=== PATIENT | male | born 1980 | race American Indian/Alaskan Native ===

== ENCOUNTER 2016-05-21 06:30 | Emergency (ER) | payer BC, MEDICAID ==
[2016-05-21 06:43] VITALS: TEMP 98.3
--- NOTE | 2016-05-21 07:01 | ED PDOC ---
HPI: Psych/Substance Abuse Time Seen by Provider: 05/21/16 06:53 Chief Complaint (Nursing): Palpitations History Per: Patient (Admits to doing PCP earlier last night. Now c/o palpitations. Denies chest telma n or SOB) Onset/Duration Of Symptoms: Hrs (4) Current Symptoms Are (Timing): Intermittent Episodes Suicide/Self Injury Attempted (Context): None Modifying Factor(s): Other Severity: Mild Pain Scale Rating Of: 0 Associated Symptoms: Anxiety Past Medical History Vital Signs: Last Vital Signs Temp 98.3 F 05/21/16 06:41 Pulse 118 H 05/21/16 06:41 Resp 18 05/21/16 06:41 BP 144/79 05/21/16 06:41 Pulse Ox 95 05/21/16 06:41 - Medical History PMH: No Chronic Diseases - Family History Family History: States: Unknown Family Hx - Immunization History Hx Tetanus Toxoid Vaccination: No (not sure of last tetanus) Hx Influenza Vaccination: No Hx Pneumococcal Vaccination: No - Home Medications Home Medications: Ambulatory Orders Medication Instructions Recorded Oxycodone HCl/Acetaminophen 1 tab PO Q8H #10 tab 09/20/14 [Percocet 325 mg-5 mg] Cephalexin [Keflex] 500 mg PO TID #21 capsule 11/21/15 Ibuprofen [Motrin] 600 mg PO Q6 PRN #15 tab 11/21/15 Oseltamivir Phosphate [Tamiflu] 75 mg PO BID #10 capsule 03/20/16 - Allergies Allergies/Adverse Reactions: Allergies Allergy/AdvReac Type Severity Reaction Status Date / Time No Known Allergies Allergy Verified 12/04/15 11:34 Review of Systems ROS Statement: Except As Marked, All Systems Reviewed And Found Negative Cardiovascular: Positive for: Palpitations. Negative for: Chest Pain Physical Exam - Reviewed Nursing Documentation Reviewed: Yes Vital Signs Reviewed: Yes - Physical Exam Appears: Positive for: Non-toxic, No Acute Distress Head Exam: Positive for: ATRAUMATIC, NORMAL INSPECTION, NORMOCEPHALIC Skin: Positive for: Normal Color, Warm, DRY Eye Exam: Positive for: EOMI, Normal appearance, PERRL ENT: Positive for: Normal ENT Inspection Neck: Positive for: Normal, Painless ROM Cardiovascular/Chest: Positive for: Regular Rate, Rhythm Respiratory: Positive for: CNT, Normal Breath Sounds Gastrointestinal/Abdominal: Positive for: Normal Exam, Bowel Sounds, Soft Back: Positive for: Normal Inspection Extremity: Positive for: Normal ROM Neurologic/Psych: Positive for: Alert, Oriented - Laboratory Results Result Diagrams: 05/21/16 06:54 - ECG O2 Sat by Pulse Oximetry: 95 Disposition - Clinical Impression Clinical Impression: Drug ingestion - Patient ED Disposition Is Patient to be Admitted: No - Disposition Disposition: Routine/Home Disposition Time: 10:17 Condition: FAIR Instructions: Polysubstance Abuse (ED)
[2016-05-21 07:33] LABS: ALB/GLOB RATIO 1.5 (1.0-2.1); ALCOHOL SERUM < 10 mg/dl (0-10); ALKALINE PHOSPHATASE 69 U/L (38-126); ALT/SGPT 34 U/L (21-72); AST/SGOT 63 U/L (17-59); BILIRUBIN,TOTAL 0.5 mg/dl (0.2-1.3); BLOOD UREA NITROGEN 15 mg/dl (9-20); CARBON DIOXIDE 23 mmol/L (22-30); CHLORIDE 105 mmol/L (98-107); GFR AFRICAN-AMERICAN > 60; GLUCOSE,RANDOM 105 mg/dL (75-110); POTASSIUM 3.8 MMOL/L (3.6-5.0); SODIUM 143 mmol/l (132-148); TOTAL PROTEIN 7.5 G/DL (6.3-8.2)
--- NOTE | 2016-05-21 08:57 | CARD ---
APPROVED REPORT EKG Measurement Heart [id number] <Conclusion> Sinus tachycardia Otherwise normal ECG
[2016-05-21 09:36] VITALS: RESP 18
[2016-05-21 10:29] VITALS: BP 123/68; PULSE 61; O2SAT 99
== END 2016-05-21 10:29 | disposition home or self-care (01) ==
LOC: H.ER 06:30
DX: T50.901A Poisoning by unspecified drugs, medicaments and biological substances, accidental (unintentional), initial encounter (principal)
CPT/HCPCS: 80053; 84484; 93005; 99283; G0480

== ENCOUNTER 2016-10-05 22:43 | Emergency (ER) | payer BC, MEDICAID ==
[2016-10-05 22:56] VITALS: BP 137/98; PULSE 66; RESP 16; TEMP 97.9; O2SAT 98
--- NOTE | 2016-10-05 23:05 | ED PDOC ---
HPI: General Adult Time Seen by Provider: 10/05/16 23:02 Chief Complaint (Nursing): Medical Clearance Chief Complaint (Provider): Brought in by EMS and HPD for evaluation History Per: Patient History/Exam Limitations: no limitations Onset/Duration Of Symptoms: Days Have you had recent travel within the past 21 days to any of the following countries: [place], [place], [place] or [place]?: No Additional Complaint(s): PT eating sandwich on arrival. Denies complaint. Past Medical History Reviewed: Historical Data, Nursing Documentation, Vital Signs Vital Signs: Last Vital Signs Temp 97.9 F 10/05/16 22:54 Pulse 66 10/05/16 22:54 Resp 16 10/05/16 22:54 BP 137/98 H 10/05/16 22:54 Pulse Ox 98 10/05/16 22:54 - Medical History PMH: No Chronic Diseases - Surgical History Surgical History: No Surg Hx - Family History Family History: States: Unknown Family Hx - Living Arrangements Living Arrangements: With Family - Social History Current smoker - smoking cessation education provided: No - Immunization History Hx Tetanus Toxoid Vaccination: No (not sure of last tetanus) Hx Influenza Vaccination: No Hx Pneumococcal Vaccination: No - Home Medications Home Medications: Ambulatory Orders Medication Instructions Recorded Oxycodone HCl/Acetaminophen 1 tab PO Q8H #10 tab 09/20/14 [Percocet 325 mg-5 mg] Cephalexin [Keflex] 500 mg PO TID #21 capsule 11/21/15 Ibuprofen [Motrin] 600 mg PO Q6 PRN #15 tab 11/21/15 Oseltamivir Phosphate [Tamiflu] 75 mg PO BID #10 capsule 03/20/16 - Allergies Allergies/Adverse Reactions: Allergies Allergy/AdvReac Type Severity Reaction Status Date / Time No Known Allergies Allergy Verified 10/05/16 22:53 Review of Systems ROS Statement: Except As Marked, All Systems Reviewed And Found Negative Constitutional: Negative for: Fever, Chills Cardiovascular: Negative for: Chest Pain Respiratory: Negative for: Shortness of Breath Gastrointestinal: Negative for: Abdominal Pain Psych: Negative for: Suicidal ideation Physical Exam - Reviewed Nursing Documentation Reviewed: Yes Vital Signs Reviewed: Yes - Physical Exam Appears: Positive for: Well, Non-toxic, No Acute Distress Head Exam: Positive for: ATRAUMATIC, NORMAL INSPECTION, NORMOCEPHALIC Skin: Positive for: Normal Color, Warm, DRY Eye Exam: Positive for: Normal appearance ENT: Positive for: Normal ENT Inspection Neck: Positive for: Normal, Painless ROM Cardiovascular/Chest: Positive for: Regular Rate, Rhythm Respiratory: Positive for: CNT, Normal Breath Sounds Gastrointestinal/Abdominal: Positive for: Normal Exam, Bowel Sounds, Soft Back: Positive for: Normal Inspection Extremity: Positive for: Normal ROM Neurologic/Psych: Positive for: Alert, Oriented - ECG O2 Sat by Pulse Oximetry: 98 Medical Decision Making Medical Decision Making: crisis evaluation completed. Disposition - Clinical Impression Clinical Impression: Adjustment disorder - Patient ED Disposition Is Patient to be Admitted: No - Disposition Disposition Time: 23:02 Condition: STABLE Additional Instructions: Pt is medically and psychiatrically stable for incarceration. Instructions: Stress (ED)
== END 2016-10-05 23:34 | disposition home or self-care (01) ==
LOC: H.ER 22:43
DX: F43.20 Adjustment disorder, unspecified (principal)

== ENCOUNTER 2016-10-06 02:17 | Emergency (ER) | payer SELFPAY ==
[2016-10-06 02:21] VITALS: BP 134/76; PULSE 75; RESP 16; TEMP 97.9; O2SAT 100
--- NOTE | 2016-10-06 02:27 | ED PDOC ---
HPI: Hypertension/Hypotension Time Seen by Provider: 10/06/16 02:24 Chief Complaint (Nursing): High Blood Pressure Chief Complaint (Provider): clearance History Per: Patient, Other (Police) Additional Complaint(s): Patient was seen earlier today in emergency department for medical and psychiatric clearance prior to incarceration. He presents for second time this evening with police stating that he was concerned about his glucose levels and his high blood pressure. Police state that they brought patient to [facility] and he started to become anxious and concerned about high blood pressure and possible diabetes. Patient was combative toward officers so they brought him back to emergency department. Upon arrival patient verbalizes no complaints. Past Medical History Reviewed: Historical Data, Nursing Documentation, Vital Signs Vital Signs: Last Vital Signs Temp 97.9 F 10/06/16 02:21 Pulse 75 10/06/16 02:21 Resp 16 10/06/16 02:21 BP 134/76 10/06/16 02:21 Pulse Ox 100 10/06/16 02:21 - Medical History PMH: No Chronic Diseases - Family History Family History: States: No Known Family Hx - Immunization History Hx Tetanus Toxoid Vaccination: No (not sure of last tetanus) Hx Influenza Vaccination: No Hx Pneumococcal Vaccination: No - Home Medications Home Medications: Ambulatory Orders Medication Instructions Recorded Oxycodone HCl/Acetaminophen 1 tab PO Q8H #10 tab 09/20/14 [Percocet 325 mg-5 mg] Cephalexin [Keflex] 500 mg PO TID #21 capsule 11/21/15 Ibuprofen [Motrin] 600 mg PO Q6 PRN #15 tab 11/21/15 Oseltamivir Phosphate [Tamiflu] 75 mg PO BID #10 capsule 03/20/16 - Allergies Allergies/Adverse Reactions: Allergies Allergy/AdvReac Type Severity Reaction Status Date / Time No Known Allergies Allergy Verified 10/05/16 22:53 Review of Systems ROS Statement: Except As Marked, All Systems Reviewed And Found Negative Constitutional: Positive for: Other (medical clearance prior to incarceration) Physical Exam - Reviewed Vital Signs Reviewed: Yes - Physical Exam Appears: Positive for: Well, Non-toxic, No Acute Distress Skin: Negative for: Rash Eye Exam: Positive for: Normal appearance Cardiovascular/Chest: Positive for: Regular Rate, Rhythm Respiratory: Positive for: Normal Breath Sounds Neurologic/Psych: Positive for: Alert, Oriented - ECG O2 Sat by Pulse Oximetry: 100 Pulse Ox Interpretation: Normal Medical Decision Making Medical Decision Makin36 year old male here for clearance prior to incarcation. Patient is under arrest, Police officers at bedside. Previous ED record reviewed from earlier today. Patient was seen and cleared by crisis. BP: 134/76 Fingerstick: 83 Patient is stable for discharge into police custody. Disposition - Clinical Impression Clinical Impression: Medical clearance for incarceration - Patient ED Disposition Is Patient to be Admitted: No - Disposition Referrals: [facility] [Outside] Disposition: Discharged/Transfer to Law Enforcement Disposition Time: 02:25 Condition: FAIR Additional Instructions: PATIENT IS MEDICALLY AND PSYCHIATRICALLY STABLE FOR INCARCERATION. Instructions: Normal Exam (ED) Forms: [employer] (Mongolian)
== END 2016-10-06 02:45 | disposition home or self-care (01) ==
LOC: H.ER 02:17
DX: Z02.89 Encounter for other administrative examinations (principal); I10 Essential (primary) hypertension

== ENCOUNTER 2017-10-22 10:21 | Emergency (ER) | payer OTHER, MEDICAID ==
[2017-10-22] MEDS ORDERED: Silver Sulfadiazine 1% CREAM (50 gm) TOP STA (11:26)
[2017-10-22] MEDS ORDERED: Tdap Vaccine 0.5 ml Vial (10-64 yrs) IM ONE ×2 (11:26→11:48)
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
[2017-10-22] MEDS ORDERED: Silver Sulfadiazine 1% CREAM (50 gm) ONE (11:48)
[2017-10-22 12:32] VITALS: BP 120/62; PULSE 68; RESP 16; TEMP 98; O2SAT 99
== END 2017-10-22 12:32 | disposition home or self-care (01) ==
LOC: H.ER 10:21
DX: T25.221A Burn of second degree of right foot, initial encounter (principal); X11.8XXA Contact with other hot tap-water, initial encounter; Z23 Encounter for immunization

== ENCOUNTER 2017-11-27 01:46 | Emergency (ER) | payer MEDICAID, OTHER ==
[2017-11-27 02:58] VITALS: BP 133/76; PULSE 75; RESP 16; TEMP 97.6; O2SAT 98
--- NOTE | 2017-11-27 05:01 | ED PDOC ---
HPI: Psych/Substance Abuse Time Seen by Provider: 11/27/17 01:58 Chief Complaint (Nursing): Medical Clearance History Per: Patient History/Exam Limitations: no limitations Additional Complaint(s): Patient presenting with medical and psychiatric clearance. Patient has no complaints at this time. Denies suicidal or homicidal ideation. Past Medical History Reviewed: Historical Data, Nursing Documentation, Vital Signs Vital Signs: Last Vital Signs Temp 97.6 F 11/27/17 02:57 Pulse 75 11/27/17 02:57 Resp 16 11/27/17 02:57 BP 133/76 11/27/17 02:57 Pulse Ox 98 11/27/17 02:57 - Medical History PMH: Depression Denies: Diabetes, Hepatitis, HIV, HTN, Seizures, Sexually Transmitted Disease - Family History Family History: States: Unknown Family Hx - Immunization History Hx Tetanus Toxoid Vaccination: No (not sure of last tetanus) Hx Influenza Vaccination: No Hx Pneumococcal Vaccination: No - Home Medications Home Medications: Ambulatory Orders Medication Instructions Recorded Oxycodone HCl/Acetaminophen 1 tab PO Q8H #10 tab 09/20/14 [Percocet 325 mg-5 mg] Cephalexin [Keflex] 500 mg PO TID #21 capsule 11/21/15 Ibuprofen [Motrin] 600 mg PO Q6 PRN #15 tab 11/21/15 Oseltamivir Phosphate [Tamiflu] 75 mg PO BID #10 capsule 03/20/16 Cephalexin [Keflex] 500 mg PO BID #14 capsule 10/22/17 Silver Sulfadiazine 1% 20 gm 1 ea TOP BID #2 tube 10/22/17 [Silvadene] - Allergies Allergies/Adverse Reactions: Allergies Allergy/AdvReac Type Severity Reaction Status Date / Time No Known Allergies Allergy Verified 10/05/16 22:53 Review of Systems ROS Statement: Except As Marked, All Systems Reviewed And Found Negative Physical Exam - Reviewed Nursing Documentation Reviewed: Yes Vital Signs Reviewed: Yes - Physical Exam Appears: Positive for: Well, Non-toxic, No Acute Distress Head Exam: Positive for: ATRAUMATIC, NORMAL INSPECTION, NORMOCEPHALIC Skin: Positive for: Normal Color, Warm, DRY Eye Exam: Positive for: EOMI, Normal appearance, PERRL ENT: Positive for: Normal ENT Inspection Neck: Positive for: Normal, Painless ROM Cardiovascular/Chest: Positive for: Regular Rate, Rhythm Respiratory: Positive for: CNT, Normal Breath Sounds Gastrointestinal/Abdominal: Positive for: Normal Exam, Soft Back: Positive for: Normal Inspection Extremity: Positive for: Normal ROM Neurologic/Psych: Positive for: Alert, Oriented - ECG O2 Sat by Pulse Oximetry: 98 Medical Decision Making Medical Decision Making: Patient presenting with medical and psychiatric clearance. Seen by crisis and cleared for discharge by Dr. Huerta with diagnosis of adjustment disorder. Disposition - Clinical Impression Clinical Impression: Adjustment disorder - Patient ED Disposition Is Patient to be Admitted: No - Disposition Referrals: [facility] [Outside] Disposition: Discharged/Transfer to Law Enforcement Disposition Time: 03:30 Condition: STABLE Additional Instructions: Patient is medically and psychiatrically cleared for incarceration. Instructions: Adjustment Disorder, General (DC) Forms: [employer] (Dive[place])
== END 2017-11-27 02:49 ==
LOC: H.ER 01:46
DX: F43.20 Adjustment disorder, unspecified (principal)